=== PATIENT | male | born 1950 | race Caucasian/White ===

== ENCOUNTER 2018-03-14 20:58 | Inpatient (IN) ==
[2018-03-14] MEDS ORDERED: DUONEB (A & A) ONE (21:29)
[2018-03-14] MEDS ORDERED: DUONEB (A & A) INH ONE ×2 (21:30→23:26)
[2018-03-14 21:39] LABS: BASO# 0.02 X1000 (0.0-0.2); BASO% 0.2 % (0.0-0.8); EOS# 0.92 X1000 (0.0-0.7); EOS% 10.5 % (0.0-10.0); HEMATOCRIT 36.6 % (42.0-52.0); HEMOGLOBIN 11.7 g/dL (14.0-18.0); IMM GRAN# 0.02 X1000 (0.0-0.04); IMM GRAN% 0.2 % (0.0-0.5); LYMPH# 2.02 X1000 (1.2-3.4); MCH 26.2 PG (27-31); MCV 81.9 FL (81-99); MONO# 0.78 X1000 (0.11-0.59); MONO% 8.9 % (1.7-9.3); MPV 8.6 FL (7.4-10.4); NEUT# 5.02 X1000 (1.4-6.5); NEUT% 57.2 % (42.2-75.2); PLT 342 X1000 (130-400); RBC 4.47 XMIL (4.7-6.1); WBC 8.78 X1000 (4.8-10.8)
[2018-03-14 21:58] LABS: AGAP 12; ALBUMIN 3.4 g/dL (3.5-5.0); ALKALINE PHOSPHATASE 126 U/L (32-122); BUN 14 mg/dL (8-22); CALCIUM 9.2 mg/dL (8.8-10.2); CHLORIDE 93 mmol/L (98-107); COSMO 277; CREATININE 1.1 mg/dL (0.7-1.2); ESTIMATED GFR > 60; GLUCOSE 109 mg/dL (70-104); GOT 9 U/L (10-34); GPT 6 U/L (10-44); POTASSIUM 4.5 mmol/L (3.5-5.1); SODIUM 138 mmol/L (136-145); TCO2 33 mmol/L (25-35); TOTAL PROTEIN 7.1 g/dL (6.3-8.3)
[2018-03-14 22:02] LABS: BE 10.7 mmoll (-3.0-3.0); BLOOD TYPE ARTERIAL; HCO3-(ACT) 33.1 mmoll (20.0-26.0); O2(CT) 15.1 mL/dL (15.0-23.0); O2HB 91.3 % (95.0-99.0); PO2(98.6) 65 mmHg (60-100); SAMPLE BLOOD; SAO2 95.6 % (95.0-100.0); THB 11.7 g/dL (11.5-17.4); pH(98.6) 7.41 (7.35-7.45)
[2018-03-14 22:04] LABS: ALLEN TEST YES; MODALITY CANNULA; PCO2(98.6) 59 mmHg (35-45)
[2018-03-14] MEDS ORDERED: LEVAQUIN 750 MG/D5W 750 MG/150 ML IVPB IV ONE (23:27)
[2018-03-14] MEDS ORDERED: SOLU-MEDROL IV ONE (23:57)
--- NOTE | 2018-03-15 00:12 | PROVIDER DOCUMENTATION ---
This chart was entered by Екатерина Osborne Scribe, acting as scribe for Cas Maldonado MD. HPI-Respiratory General - General Chief Complaint: Shortness of Breath Stated Complaint: AMS Time Seen by Provider: 03/14/18 21:36 Source: patient Allergies/Adverse Reactions: Patient Allergies Allergy/AdvReac Type Severity Reaction Status Date / Time dantrolene sodium * Allergy ITCHING Verified 12/26/17 21:26 [From Dantrium] piroxicam [From Feldene] Allergy ITCHING Verified 12/26/17 21:26 Home Medications: Home Medication List Medication Instructions Recorded Confirmed Last Taken Type Sertraline [Zoloft] 1 tab PO DAILY 05/02/17 01/25/18 Unknown History Furosemide [Lasix] 40 mg PO BID 12/26/17 01/25/18 Unknown History Diltiazem C.d. [Cardizem Cd] 120 mg PO DAILY #90 cap 12/30/17 01/25/18 Unknown Rx Olanzapine 1 tab PO HS 01/05/18 01/25/18 Unknown History Albuterol 2.5MG/Ipratrop 0.5MG 3 ml INH RTQ4H neb 01/09/18 01/25/18 Unknown Rx [Duoneb (A & A)] Alprazolam [Xanax] 0.5 mg PO BID PRN PRN tablet 01/09/18 01/25/18 Unknown Rx Spironolactone 1 tab PO BID 01/25/18 01/25/18 Unknown History Albuterol 2.5MG/Ipratrop 0.5MG 3 ml INH RTQ4H neb 01/27/18 Unknown Rx [Duoneb (A & A)] Hydrocodone/APAP 10 mg/325 mg 1 each PO Q6H PRN PRN tablet 01/27/18 Unknown Rx [[place]-10] Levofloxacin [Levaquin] 500 mg PO DAILY #5 tab 01/27/18 Unknown Rx Methylprednisolone [Medrol Dosepak] 4 mg PO DIRECTED #1 pkg 01/27/18 Unknown Rx - History of Present Illness-Resp Nature of Presenting Problem: Patient is a 67 year old male who presents to the ED via EMS with shortness of breath. Patient's O2 sat was 83% on 3 L on arrival to ED. Patient denies chest pain. Patient's O2 sat is currently 90% on 3 L after having a breathing treatment. Quality of Pain: reports: tightness Severity in ED: reports: moderate Onset/Duration: reports: this morning Timing: reports: still present Cough Quality/Degree: reports: no cough Current Respiratory Medication Therapy: Initiated see nurses note Modifying Factors: improves with: nothing Associated Symptoms: reports: shortness of breath Similar Symptoms Previously?: No Recently seen or treated by another doctor?: No Review of Systems - Adult - REVIEW OF SYSTEMS - ADULT Constitutional: reports: no symptoms reported Eyes: reports: no symptoms reported Ears, Nose, Mouth & Throat: reports: no symptoms reported Cardiovascular: reports: no symptoms reported Respiratory: reports: shortness of breath. denies: cough, wheezing Gastrointestinal: reports: no symptoms reported Genitourinary: reports: no symptoms reported Musculoskeletal: reports: no symptoms reported Integumentary: reports: no symptoms reported Neurological: reports: no symptoms reported Psychiatric: reports: no symptoms reported Endocrine: reports: no symptoms reported Hematologic/Lymphatic: reports: no symptoms reported Allergic/Immunologic: reports: no symptoms reported All Other Systems: Reviewed and Negative Past History - Adult - PAST MEDICAL HISTORY-ADULT Review of Records: reports: Nursing Assessment Review, Medications Reviewed, Social history reviewed & non-contributory. Major Childhood Illnesses: reports: denies history Cardiovascular: reports: CAD, CHF, HTN, [place] Respiratory: reports: COPD, sleep apnea Gastrointestinal: reports: GERD Obstetrical/Gynecological: reports: denies history Genitourinary: reports: denies history Musculoskeletal: reports: chronic pain, neck/back injury Neurological: reports: dementia Psychiatric: reports: psychiatric problems Endocrine/Immune: reports: denies history Other Conditions: reports: other (agent orange) Additional History: prescription medication abuse - PRIOR SURGERIES/PROCEDURES Surgical/Procedure History: reports: appendectomy, hernia repair, back/neck - PRIOR HOSPITALIZATIONS Prior Hospitalizations: reports: none - IMMUNIZATION STATUS Childhood Immunizations: See Nurse Assessment Flu Vaccine: See Nurse Assessment - FAMILY HISTORY Family History: reviewed, not pertinent - SOCIAL HISTORY Smoking: secondhand, cigarettes (former) Substance Use: denies Living Situation: family Physical Exam-General - PHYSICAL EXAM-ADULT Initial Vital Signs Reviewed: Yes - CONSTITUTIONAL General Appearance: alert, no apparent distress - HEAD, EARS, NOSE, MOUTH & THROAT HENMT: normal ENT inspection - NECK Neck: normal inspection - RESPIRATORY Respiratory: chest non-tender, decreased breath sounds (bilateral), rales ( bilateral) - CARDIOVASCULAR Cardiovascular: normal peripheral pulses, regular rate, rhythm - GASTROINTESTINAL (ABDOMEN) Abdominal Exam: normal bowel sounds, non tender, soft - MUSCULOSKELETAL Extremity: non-tender, swelling (bilateral ankles) - SKIN Integumentary: normal color, normal turgor, warm/dry - NEUROLOGIC Neurologic: grossly normal - PSYCHIATRIC Psych/Mental Status: normal mood/affect, oriented x 3 Progress - PLAN OF CARE/RESULTS Progress/Plan/Lab Results: Vital Signs - 8 hr 03/14/18 20:59 03/14/18 21:35 03/14/18 22:04 Temperature 98.4 F Pulse Rate 99 H 95 H 98 H Respiratory Rate 16 17 13 Blood Pressure 149/95 136/89 144/92 O2 Sat by Pulse Oximetry 92 L 93 L 90 L 03/14/18 22:57 03/14/18 23:40 Temperature Pulse Rate 92 H 90 Respiratory Rate 15 18 Blood Pressure 157/89 O2 Sat by Pulse Oximetry 93 L 94 L Laboratory Results - last 24 hr 03/14/18 03/14/18 03/14/18 21:14 21:14 21:14 WBC 8.78 RBC 4.47 L Hgb 11.7 L Hct 36.6 L MCV 81.9 MCH 26.2 L MCHC 32.0 L RDW Std Deviation 17.0 H Plt Count 342 MPV 8.6 Immature Gran % (Auto) 0.2 Neut % (Auto) 57.2 Lymph % (Auto) 23.0 [place] % (Auto) 8.9 Eos % (Auto) 10.5 H Baso % (Auto) 0.2 Immature Gran # (Auto) 0.02 Neut # (Auto) 5.02 Lymph # (Auto) 2.02 [place] # (Auto) 0.78 H Eos # (Auto) 0.92 H Baso # (Auto) 0.02 Specimen Type Sample Site pH pCO2 pO2 HCO3 Base Excess Oxyhemoglobin ABG O2 Sat (Calculated) ABG O2 Saturation ABG Carboxyhemoglobin ABG Methemoglobin [place] Test A-a O2 Difference Total Hemoglobin Lactate Liter Flow Blood Gas Modality FiO2 % Sodium 138 Potassium 4.5 Chloride 93 L Carbon Dioxide 33 Anion Gap 12 BUN 14 Creatinine 1.1 Estimated GFR/1.73 m2 > 60 BUN/Creatinine Ratio 13 Glucose 109 H Calculated Osmolality 277 Calcium 9.2 Total Bilirubin 0.20 AST 9 L ALT 6 L Alkaline Phosphatase 126 H Troponin T Syt-P-Fclvhhsxpzi Pept Total Protein 7.1 Albumin 3.4 L Globulin 4.0 Albumin/Globulin Ratio 1.0 Plasma Lactate 1.1 03/14/18 03/14/18 03/14/18 21:14 21:14 21:36 WBC RBC Hgb Hct MCV MCH MCHC RDW Std Deviation Plt Count MPV Immature Gran % (Auto) Neut % (Auto) Lymph % (Auto) [place] % (Auto) Eos % (Auto) Baso % (Auto) Immature Gran # (Auto) Neut # (Auto) Lymph # (Auto) [place] # (Auto) Eos # (Auto) Baso # (Auto) Specimen Type ARTERIAL Sample Site L BRACHIAL pH 7.41 pCO2 59 H* pO2 65 HCO3 33.1 H Base Excess 10.7 H Oxyhemoglobin 91.3 L ABG O2 Sat (Calculated) 15.1 ABG O2 Saturation 95.6 ABG Carboxyhemoglobin 3.50 H ABG Methemoglobin 1.0 [place] Test YES A-a O2 Difference 89.0 Total Hemoglobin 11.7 Lactate 0.60 Liter Flow 3.0 Blood Gas Modality [place] FiO2 % 32.0 Sodium Potassium Chloride Carbon Dioxide Anion Gap BUN Creatinine Estimated GFR/1.73 m2 BUN/Creatinine Ratio Glucose Calculated Osmolality Calcium Total Bilirubin AST ALT Alkaline Phosphatase Troponin T < 0.010 Prz-U-Fiotnlvlegx Pept 343 H Total Protein Albumin Globulin Albumin/Globulin Ratio Plasma Lactate Orders Category Date Time Status CHEST-PORTABLE [RAD] Stat Exams 03/14/18 21:53 Taken ABG [RESP] Routine Lab 03/14/18 21:36 Completed BLOOD CULTURE [BLDCUL] Stat Lab 03/14/18 21:22 Results CBC WITH ELECTRONIC DIFF [HEME] Stat Lab 03/14/18 21:14 Completed COMPREHENSIVE METABOLIC PANEL [CHEM] Stat Lab 03/14/18 21:14 Completed LACTATE, PLASMA [CHEM] Stat Lab 03/14/18 21:14 Completed PRO B-NATRIURETIC PEPTIDE Stat Lab 03/14/18 21:14 Completed TROPONIN T Stat Lab 03/14/18 21:14 Completed Albuterol 2.5MG/Ipratrop 0.5MG [Duoneb (A & A)] Med 03/14/18 21:29 Discontinued 3 ml .ROUTE .STK-MED ONE Albuterol 2.5MG/Ipratrop 0.5MG [Duoneb (A & A)] Med 03/14/18 21:30 Discontinued 3 ml INH NOW ONE Albuterol 2.5MG/Ipratrop 0.5MG [Duoneb (A & A)] Med 03/14/18 23:26 Discontinued 3 ml INH NOW ONE Levofloxacin 750 mg/D5w [Levaquin 750 mg/D5w] Med 03/14/18 23:27 Active 750 mg in 150 ml IV NOW Aerosol Treatments Routine Oth 03/14/18 21:30 Completed Aerosol Treatments Routine Oth 03/14/18 23:27 Completed Aerosol Treatments Stat Oth 03/14/18 21:30 Completed Aerosol Treatments Stat Oth 03/14/18 23:27 Completed EKG [EKG] Stat Ther 03/14/18 21:23 Ordered Result Diagrams: 03/14/18 21:14 03/14/18 21:14 - REASSESSMENT Reassessment #1 Time Reassessed: 23:45 Status: improving (FEELS MUCH BETTER, LESS DYSPNEIC AFTER TREATMENTS) - EKG 1 Time of EKG reading by physician:: 21:32 EKG Read and Signed by:: Cas Maldonado EKG Interpretation (*Must complete 3 of following elements*): Abnormal Rate: 99 Rhythm: normal sinus rhythm Comments: prolonged QT - XRAY 1 XRAY Study: Chest Impression: Abnormal (COPD WITH NEW INFILTRATESRIGHT MID FIELD) - CONSULTS/PCP/HOSPITALIST Notification #1 *Consult/PCP/Hospitalist*: Dr. Gipson Time Discussed: 23:41 Reason/Comments: Dr. Maldonado consulted with Dr. Gipson about patient. Consult Disposition: other (Dr. Gipson states Dr. Carlson admits his own.) #2 Consult: Dr. Carlson Time Discussed: 23:46 Reason/Comments: Dr. Maldonado consulted with Dr. Carlson about patient. Consult Disposition: Admit Departure - Departure Date of Disposition Decision: 03/14/18 Time of Disposition Decision: 23:47 DIAGNOSIS: COPD with exacerbation, Respiratory distress, Carbon dioxide retention, Pneumonia Disposition: ADMITTED INPATIENT 09 Certified Medical Emergency: Emergent Condition: Stable Referrals and Follow-Ups: Migeul Carlson MD [Primary Care Provider] - - Critical Care Note This patient required my direct & personal management of CC.: No Attestation - Physician/ DEVON Attestation Patient care was provided by Advanced Practice Provider:: No The physician spent face to face time with patient:: Yes Advanced Practice Provider documentation review:: Supervising physician onsite and consulted in the evaluation and care of this patient. The physician did have a face to face encounter with the patient. This chart was documented by the indicated scribe, (Екатерина Osborne Scribe) and accurately reflects the services I performed and decisions made by me, Cas Maldonado MD, as attested by the provider's signature.
--- NOTE | 2018-03-15 02:07 | EKG Report ---
Test Performed on : 03/14/2018 9:32:49 PM Test Reason : sob Blood Pressure : / mmHG Vent. Rate : 099 BPM Atrial Rate : 099 BPM P-R Int : 184 ms QRS Dur : 096 ms QT Int : 380 ms P-R-T Axes : 069 019 067 degrees QTc Int : 487 ms Normal sinus rhythm. Prolonged QT Abnormal ECG When compared with ECG of 23-JAN-2018 15:55, (Unconfirmed) QT has lengthened Unconfirmed Result
[2018-03-15] MEDS: DUONEB (A & A) INH SCH ×7 (03:33→23:00)
[2018-03-15] MEDS ORDERED: NS 1,000 ML IV ONE (03:33)
[2018-03-15] MEDS ORDERED: ATIVAN IV ONE (04:32)
[2018-03-15] MEDS ORDERED: GEODON IM ONE (05:33)
[2018-03-15] MEDS ORDERED: STERILE WATER INJ. INJ ONE (05:33)
--- NOTE | 2018-03-15 07:28 | Diag Imaging Result Doc PS360 ---
EXAM: CHEST-PORTABLE HISTORY: SOB TECHNIQUE: Chest single view COMPARISON: 01/23/2018 FINDINGS: The lungs are well expanded. The heart is not enlarged. There are infiltrates in the mid right lung. Likely scarring in the lower left lung. No pleural effusions identified. Hilar prominence which may be the vasculature. There is a calcified granuloma in the right base. IMPRESSION: Right-sided infiltrates Electronically signed by Pietro Melo 03/15/2018 7:25 AM
[2018-03-15] MEDS ORDERED: NS 1,000 ML ONE (07:46)
[2018-03-15] MEDS ORDERED: TYLENOL PO PRN (08:30)
[2018-03-15] MEDS ORDERED: DUONEB (A & A) INH PRN (08:30)
[2018-03-15] MEDS ORDERED: ZOFRAN IV PRN (08:30)
[2018-03-15] MEDS ORDERED: VANCOMYCIN IV PER PHARMACY MISC SCH (08:45)
[2018-03-15] MEDS: SOLU-MEDROL IV SCH ×2 (09:10→17:40)
[2018-03-15] MEDS: ZOLOFT PO SCH (09:10)
[2018-03-15] MEDS: ZOSYN 3.375 GM in NS 50 ML IV SCH ×3 (09:35→20:39)
[2018-03-15] MEDS: VANCOMYCIN 2,000 MG in NS 500 ML IV SCH (10:00)
[2018-03-15] MEDS ORDERED: XANAX ONE (10:17)
[2018-03-15] MEDS: XANAX PO PRN ×2 (10:18→20:34)
[2018-03-15] MEDS ORDERED: DUONEB (A & A) INH SCH (11:30)
[2018-03-15] MEDS ORDERED: NORCO-10 ONE (11:55)
[2018-03-15] MEDS: NORCO-10 PO PRN ×2 (12:09→18:33)
[2018-03-15] MEDS ORDERED: CARDIZEM CD ONE (13:46)
[2018-03-15] MEDS: CARDIZEM CD PO SCH (13:54)
[2018-03-15] MEDS: ZYPREXA PO SCH (20:34)
[2018-03-16] MEDS: NORCO-10 PO PRN ×4 (00:40→21:23)
[2018-03-16] MEDS: SOLU-MEDROL IV SCH ×3 (04:03→18:20)
[2018-03-16] MEDS: ZOSYN 3.375 GM in NS 50 ML IV SCH ×4 (04:04→23:50)
[2018-03-16] MEDS: DUONEB (A & A) INH SCH ×6 (04:15→22:47)
[2018-03-16] MEDS: VANCOMYCIN 1 GM/NS 1 GM/250 ML IVPB IV SCH ×2 (04:28→04:33)
[2018-03-16] MEDS: VANCOMYCIN 2,000 MG in NS 500 ML IV SCH ×2 (04:33→21:21)
[2018-03-16] MEDS: ZOLOFT PO SCH (08:07)
[2018-03-16] MEDS: CARDIZEM CD PO SCH (08:07)
--- NOTE | 2018-03-16 08:34 | HISTORY AND PHYSICAL ---
CHIEF COMPLAINT: Confusion, shortness of breath. HISTORY OF PRESENT ILLNESS: The patient is a 67-year-old male, who presented to the emergency department with increased work of breathing, increased shortness of breath, dyspnea on exertion. His O2 saturation was 83% on 3 L. He improved to 90% on 3 L after nebulized treatment. He was confused, restless, repeatedly pulling out his IV. ALLERGIES: Dantrolene and Feldene both causing itching. MEDICATIONS: Zoloft, Lasix 40 twice a day, Cardizem 120, Zyprexa, albuterol, Xanax 0.5 b.i.d., spironolactone 25 daily, [place] 10 three times daily. PAST MEDICAL HISTORY: Chronic pain, chronic anxiety, PTSD, COPD, chronic hypoxic respiratory failure, chronic hypercapnic respiratory failure currently on Trilogy at home. He has history of congestive heart failure, hypertension, [place], chronic reflux. He has had a neck and back injury in the past. Chronic pain. He has been exposed to [place]. He has had an appendectomy and a hernia repair. SOCIAL HISTORY: Lives at home. He is . He has stopped smoking. Denies alcohol. FAMILY HISTORY: Noncontributory, although does have family history of anxiety. REVIEW OF SYSTEMS: Unobtainable currently from Mr. Gonzales due to his altered mental status. PHYSICAL EXAMINATION: VITAL SIGNS: Temperature 94 degrees, pulse 99, respiratory 16, BP 149/95, saturating currently 92% on 3 L. GENERAL: Patient is awake, alert, but confused, disoriented. He does know where he is and why, but he is unable to answer other questions, and frequently starts talking about totally unrelated items when asked questions. HEENT: Normocephalic. NECK: Supple. CV: Regular rate. No murmurs. CHEST: Greatly decreased breath sounds bilaterally. Moderately labored. Moderate wheezing. ABDOMEN: Soft, nondistended. EXTREMITIES: He has no edema. Moves all extremities. NEUROLOGIC: He is awake, alert, but disoriented. No apparent focal neurologic changes otherwise. LABS: WBC 8. ASSESSMENT: 1. Chronic obstructive pulmonary disease with exacerbation. 2. Acute on chronic hypoxic respiratory failure. 3. Chronic hypercapnic respiratory failure. CO2 is at his baseline. 4. Hypertension. 5. Diabetes. 6. Chronic coronary artery disease. 7. Others. PLAN: We will admit patient to hospital. IV fluids, antibiotics, breathing treatments, oxygen and will follow with you. cc: Miguel Carlson MD
[2018-03-16] MEDS ORDERED: SODIUM CHLORIDE 0.9% INJ SCH (14:15)
[2018-03-16] MEDS: PROTONIX IV SCH (16:04)
[2018-03-16] MEDS: ZYPREXA PO SCH (21:21)
[2018-03-16] MEDS: XANAX PO PRN (21:23)
[2018-03-17] MEDS: DUONEB (A & A) INH SCH ×6 (02:58→23:05)
[2018-03-17] MEDS: NORCO-10 PO PRN ×2 (05:09→15:57)
[2018-03-17] MEDS: ZOSYN 3.375 GM in NS 50 ML IV SCH ×3 (05:10→18:26)
[2018-03-17] MEDS: XANAX PO PRN ×2 (05:10→15:57)
[2018-03-17] MEDS: SOLU-MEDROL IV SCH ×3 (05:11→19:56)
[2018-03-17] MEDS: CARDIZEM CD PO SCH (08:20)
[2018-03-17] MEDS: ZOLOFT PO SCH (08:20)
--- NOTE | 2018-03-17 10:05 | PROGRESS NOTE ---
DATE: 03/16/2018 SUBJECTIVE: Patient seen and examined by myself on the third. Patient states he is feeling better. Still has some shortness of breath, still anxious, nervous, still hurting all over. Denies any chest pains currently. OBJECTIVE: Vital Signs: On physical examination, pulse 104, respiratory 22, BP 169/88. General: Patient is awake, alert. He is much more oriented today than he was on last night's exam. HEENT: Normocephalic, atraumatic. Neck: Supple. CV: Regular rate. No murmurs. Chest: Clear, but decreased. Currently no wheezing, but he has just had a breathing treatment. Abdomen: Soft, nondistended. Extremities: Moves all extremities. He has trace edema. ASSESSMENT: 1. Acute on chronic hypoxic respiratory failure. 2. Chronic hypercapnic respiratory failure on Trilogy at home. 3. Metabolic encephalopathy secondary to hypoxic respiratory failure. 4. Chronic anxiety. 5. Chronic pain. PLAN: Will continue patient in the hospital. Continue Trilogy, oxygen, antibiotics, breathing treatments and will follow. We will continue to discuss with patient that he cannot increase his pain medicine or his anxiety medicine due to respiratory failure. cc: Miguel Carlson MD
[2018-03-17] MEDS: PROTONIX IV SCH (16:00)
[2018-03-17] MEDS: VANCOMYCIN 2,000 MG in NS 500 ML IV SCH (16:07)
[2018-03-17] MEDS: ZYPREXA PO SCH ×2 (19:56→20:05)
--- NOTE | 2018-03-17 22:07 | PROGRESS NOTE ---
DATE: 03/17/2018 SUBJECTIVE: Patient is a little bit more awake and alert this morning he is more oriented. States his breathing is improving, still having cough, congestion, still has shortness of breath. OBJECTIVE: Vital Signs: Reviewed, he is afebrile, blood pressure stable, heart rate 22. General: Patient is lying in the bed he has just received a breathing treatment. He is in stable chronic mild respiratory distress currently. HEENT: Normocephalic. Neck: Supple. CV: Regular rate. Chest: Clear, no current crackles, no wheezing, decreased but equal breath sounds bilaterally. Abdomen: Soft nondistended. Extremities: Moves all extremities. Neuro: No focal changes. ASSESSMENT: 1. Acute hypoxic on chronic hypoxic respiratory failure. 2. Chronic hypercapnic respiratory failure. 3. Chronic obstructive pulmonary disease with exacerbation . 4. Chronic medical noncompliance. 5. Chronic anxiety. 6. Chronic pain. PLAN: Will continue patient in the hospital. At this point he is stable to transfer out of the ICU. Will continue his current treatment and further orders as needed. cc: Miguel Carlson MD
[2018-03-18] MEDS: ZOSYN 3.375 GM in NS 50 ML IV SCH ×5 (00:33→23:16)
[2018-03-18] MEDS: DUONEB (A & A) INH SCH ×6 (03:34→23:04)
[2018-03-18] MEDS: SOLU-MEDROL IV SCH ×3 (05:01→21:22)
[2018-03-18 05:48] LABS: BE 4.6 mmoll (-3.0-3.0); BLOOD TYPE ARTERIAL; HCO3-(ACT) 28.5 mmoll (20.0-26.0); METHB 1.2 % (0.0-1.5); O2(CT) 16.1 mL/dL (15.0-23.0); PO2(98.6) 92 mmHg (60-100); SAMPLE BLOOD; SAO2 98.5 % (95.0-100.0); pH(98.6) 7.38 (7.35-7.45)
[2018-03-18 05:51] LABS: ALLEN TEST YES; MODALITY CANNULA; PCO2(98.6) 52 mmHg (35-45)
[2018-03-18 06:58] LABS: HEMATOCRIT 37.4 % (42.0-52.0); HEMOGLOBIN 11.6 g/dL (14.0-18.0); IMM GRAN# 0.02 X1000 (0.0-0.04); IMM GRAN% 0.3 % (0.0-0.5); LYMPH# 0.83 X1000 (1.2-3.4); MCH 25.3 PG (27-31); MCV 81.5 FL (81-99); MONO# 0.55 X1000 (0.11-0.59); MONO% 7.3 % (1.7-9.3); NEUT# 6.16 X1000 (1.4-6.5); NEUT% 81.4 % (42.2-75.2); PLT 390 X1000 (130-400); RBC 4.59 XMIL (4.7-6.1); RDW 17.7 % (11.5-14.5); WBC 7.56 X1000 (4.8-10.8)
[2018-03-18 07:19] LABS: AGAP 9; ALKALINE PHOSPHATASE 84 U/L (32-122); BUN 33 mg/dL (8-22); CHLORIDE 103 mmol/L (98-107); COSMO 288; CREATININE 0.9 mg/dL (0.7-1.2); ESTIMATED GFR > 60; GLUCOSE 114 mg/dL (70-104); GOT 8 U/L (10-34); GPT 7 U/L (10-44); POTASSIUM 3.8 mmol/L (3.5-5.1); SODIUM 140 mmol/L (136-145); TCO2 28 mmol/L (25-35); TOTAL PROTEIN 6.3 g/dL (6.3-8.3)
[2018-03-18] MEDS ORDERED: LIORESAL PO PRN (07:47)
[2018-03-18] MEDS ORDERED: CARDIZEM CD PO SCH (09:00)
[2018-03-18] MEDS ORDERED: FLU VACCINE IM ONE (09:00)
[2018-03-18] MEDS: ZOLOFT PO SCH (09:04)
[2018-03-18] MEDS: CARDIZEM CD PO SCH (09:05)
[2018-03-18] MEDS: LASIX PO SCH ×2 (09:24→21:23)
[2018-03-18] MEDS: DOXYCYCLINE PO SCH ×2 (09:24→21:23)
[2018-03-18] MEDS: ALDACTONE PO SCH ×2 (09:24→21:23)
[2018-03-18] MEDS: XANAX PO PRN ×2 (12:33→21:22)
[2018-03-18] MEDS: NORCO-10 PO PRN ×2 (12:33→18:30)
--- NOTE | 2018-03-18 19:37 | PROGRESS NOTE ---
DATE: 03/18/2018 SUBJECTIVE: Patient notes he is starting feel a lot better. States he does not know what transpired cause him come the hospital be so confused, disoriented. PHYSICAL: Temperature 98.5, pulse 87, respiratory 20, BP 163/97.General: Patient is awake, alert currently in mild respiratory distress this is baseline. HEENT: Normocephalic. Neck: Supple. CV: Regular rate, no murmurs. Chest: Clear, currently he has no crackles, no wheezing but decreased breath sounds bilaterally. Abdomen: Soft nondistended. Extremities: Moves all extremities. ASSESSMENT: 1. Chronic obstructive pulmonary disease with acute exacerbation. 2. Acute on chronic hypoxic respiratory failure. 3. Chronic hypercapnic respiratory failure his CO2 was at baseline on admission. 4. Hypertension. 5. Diabetes. 6. Known coronary artery disease. 7. Chronic pain. 8. Chronic anxiety. PLAN: Will continue patient the hospital, decrease Solu-Medrol to 40 IV q.8, if he tolerates hopefully can discharge home tomorrow. cc: Miguel Carlson MD
[2018-03-18] MEDS ORDERED: PROTONIX PO SCH (21:00)
[2018-03-18] MEDS: ZYPREXA PO SCH (21:23)
[2018-03-19] MEDS: NORCO-10 PO PRN ×2 (01:57→08:38)
[2018-03-19] MEDS: DUONEB (A & A) INH SCH ×2 (03:45→08:16)
[2018-03-19] MEDS: ZOSYN 3.375 GM in NS 50 ML IV SCH ×2 (04:48→12:38)
[2018-03-19] MEDS: SOLU-MEDROL IV SCH (04:48)
[2018-03-19] MEDS: CARDIZEM CD PO SCH (08:38)
[2018-03-19] MEDS: ZOLOFT PO SCH (08:38)
[2018-03-19] MEDS: LASIX PO SCH (08:39)
[2018-03-19] MEDS: ALDACTONE PO SCH (08:39)
[2018-03-19] MEDS: DOXYCYCLINE PO SCH (08:39)
[2018-03-19] MEDS: XANAX PO PRN (08:39)
[2018-03-19 11:28] VITALS: BP 137/83
--- NOTE | 2018-03-19 14:58 | DISCHARGE SUMMARY ---
ADMISSION DATE: 03/15/2018 DISCHARGE DATE: 03/19/2018 DISCHARGE DIAGNOSES: 1. Chronic obstructive pulmonary disease exacerbation. 2. Metabolic encephalopathy. 3. Acute on chronic hypoxemia. 4. Acute on chronic respiratory failure. 5. Chronic pain. 6. Chronic anxiety. CONSULTATIONS: None. PROCEDURES: None. BRIEF HOSPITAL COURSE: Patient is a 67-year-old male who presented to the emergency department acutely confused, disoriented and delirious. He was noted to be quite hypoxic. His CO2 or ABG actually was lower than when he was in the hospital the last admission. He had been using Trilogy at home. The patient was admitted to ICU, placed on breathing treatments, oxygen, antibiotics, steroids, and placed back on his Trilogy. Thankfully, continued to improve over the next few days. His oxygenation returned back to his baseline. He was in no further distress. The patient's steroids were weaned. On discharge, he is awake, alert. He is back to his baseline. He is in no distress. He is alert oriented x 3. He is tolerating home Trilogy, tolerating oxygen. DISPOSITION: Patient will be discharged home. TIME SPENT: Greater than 30 minutes was spent in total care. Discussed with patient that most likely the cause of his acute delirium was medications side effect. We have been struggling to try to force him to stop Xanax and hydrocodone. We will continue to force him to wean these substances down. He will be discharged home on antibiotics, a steroid tapering Dosepak. Will continue Trilogy and oxygen at home. cc: Miguel Carlson MD
== END 2018-03-19 13:20 | disposition home or self-care (01) | DRG 189 ==
LOC: P.EDIPHOLD 20:58 → P.ED 20:58 → SUATTDRO 03-15 03:10 → P.MEDSURG 03-15 09:31 → P.EDIPHOLD 03-15 10:12 → P.ICU 03-15 19:07 → P.MEDSURG 03-17 12:20
PROVIDERS: ADMIT Family Medicine; ATTEND Family Medicine
CPT/HCPCS: 71010; 71045; 80053; 82805; 82948; 83605; 83880; 84484; 85025; 87040; 90686; 93005; 94640; 94761; 96361; 96365; 96366; 96367; 96368; 96372; 96375; 96376; 99285; A9270; C9113; J1956; J2060; J2543; J2920; J2930; J3370; J3486; J7030; J7040; S0164; XXXXX

== ENCOUNTER 2018-06-07 16:45 | Inpatient (IN) ==
[2018-06-07] MEDS ORDERED: DUONEB (A & A) INH ONE (17:05)
[2018-06-07] MEDS ORDERED: SOLU-MEDROL IV ONE (17:05)
[2018-06-07] MEDS ORDERED: PULMICORT INH ONE (17:05)
--- NOTE | 2018-06-07 17:16 | PROVIDER DOCUMENTATION ---
HPI-Respiratory General - General Chief Complaint: Shortness of Breath Stated Complaint: SOB Time Seen by Provider: 06/07/18 16:54 Source: patient Allergies/Adverse Reactions: Patient Allergies Allergy/AdvReac Type Severity Reaction Status Date / Time dantrolene sodium * Allergy ITCHING Verified 06/07/18 17:04 [From Dantrium] piroxicam [From Feldene] Allergy ITCHING Verified 06/07/18 17:04 Home Medications: Home Medication List Medication Instructions Recorded Confirmed Last Taken Type Sertraline [Zoloft] 50 mg PO DAILY 05/02/17 03/17/18 Unknown History Furosemide [Lasix] 40 mg PO BID 12/26/17 03/17/18 Unknown History Spironolactone 25 mg PO BID 01/25/18 03/17/18 Unknown History Hydrocodone/APAP 10 mg/325 mg 1 each PO Q6H PRN PRN tablet 01/27/18 03/17/18 Unknown Rx [[place]-10] Albuterol 2.5MG/Ipratrop 0.5MG 3 ml INH RTQ4H PRN 03/17/18 03/17/18 Unknown History [Duoneb (A & A)] Alprazolam 0.5 mg PO TID PRN 03/17/18 03/17/18 Unknown History Amphetamine Salts [Adderall] 20 mg PO BID 03/17/18 03/17/18 Unknown History Baclofen 10 mg PO BID PRN 03/17/18 03/17/18 Unknown History Diltiazem HCl [Cartia Xt] 120 mg PO DAILY 03/17/18 03/17/18 Unknown History Albuterol 2.5MG/Ipratrop 0.5MG 3 ml INH Q4-6H PRN PRN neb 03/19/18 Unknown Rx [Duoneb (A & A)] CefDINIR [Omnicef] 300 mg PO BID #10 cap 03/19/18 Unknown Rx Doxycycline 100 mg PO BID #10 tab 03/19/18 Unknown Rx Methylprednisolone [Medrol Dosepak] 4 mg PO DIRECTED #1 pkg 03/19/18 Unknown Rx - History of Present Illness-Resp Nature of Presenting Problem: Presents to the with complaints of SOB and dyspnea. He states that he is on hospice for COPD and CHF. he is normally on NC at 3L and his normal SpO2 is 89- 90%. His SpO2 with hospice was 81%. They wanted him to sign a DNR and he got sca red and revoked his hospiace and stated that he wanted to live. They gave him a breathing treatment at [facility] and EMS gave him one as well. He endorses a chronic unchanged cough. He deneis any fevers or chills. Review of Systems - Adult - REVIEW OF SYSTEMS - ADULT Constitutional: denies: chills, fever Eyes: reports: no symptoms reported Ears, Nose, Mouth & Throat: reports: no symptoms reported Cardiovascular: denies: chest pain Respiratory: reports: chronic cough, cough, dyspnea on exertion Gastrointestinal: reports: no symptoms reported Genitourinary: reports: no symptoms reported Musculoskeletal: reports: no symptoms reported Integumentary: reports: no symptoms reported Neurological: reports: no symptoms reported Psychiatric: reports: no symptoms reported Endocrine: reports: no symptoms reported Hematologic/Lymphatic: reports: no symptoms reported Allergic/Immunologic: reports: no symptoms reported All Other Systems: Reviewed and Negative Past History - Adult - PAST MEDICAL HISTORY-ADULT Review of Records: reports: Old Records Reviewed Major Childhood Illnesses: reports: denies history Cardiovascular: reports: CAD, CHF, HTN, MS Respiratory: reports: COPD, sleep apnea Gastrointestinal: reports: GERD Obstetrical/Gynecological: reports: denies history Genitourinary: reports: denies history Musculoskeletal: reports: chronic pain, neck/back injury Neurological: reports: dementia Psychiatric: reports: psychiatric problems Endocrine/Immune: reports: denies history Other Conditions: reports: other ([place]) Additional History: prescription medication abuse - PRIOR SURGERIES/PROCEDURES Surgical/Procedure History: reports: appendectomy, hernia repair, back/neck - PRIOR HOSPITALIZATIONS Prior Hospitalizations: reports: none - IMMUNIZATION STATUS Childhood Immunizations: See Nurse Assessment Flu Vaccine: See Nurse Assessment - FAMILY HISTORY Family History: reviewed, not pertinent Physical Exam-General - PHYSICAL EXAM-ADULT Initial Vital Signs Reviewed: Yes - CONSTITUTIONAL General Appearance: alert, mild distress, anxious - EYES Eyes: PERRL/EOMI - HEAD, EARS, NOSE, MOUTH & THROAT HENMT: normocephalic/atraumatic - NECK Neck: non-tender, supple - RESPIRATORY Respiratory: chest non-tender, respiratory distress (mild), decreased breath sounds (severe throughout), accessory muscle use (mild). negative: crackles - CARDIOVASCULAR Cardiovascular: normal peripheral pulses, tachycardia - GASTROINTESTINAL (ABDOMEN) Abdominal Exam: normal bowel sounds, non tender, soft - LYMPHATIC Lymphatic: no adenopathy - MUSCULOSKELETAL Back Exam: normal inspection Extremity: normal range of motion, non-tender - SKIN Integumentary: normal color, warm/dry - NEUROLOGIC Neurologic: grossly normal - PSYCHIATRIC Psych/Mental Status: normal mood/affect, oriented x 3 Progress - PLAN OF CARE/RESULTS Progress/Plan/Lab Results: Vital Signs - 8 hr 06/07/18 16:49 06/07/18 17:00 06/07/18 17:30 Pulse Rate 91 H 90 100 H Respiratory Rate 20 16 18 Blood Pressure 143/79 O2 Sat by Pulse Oximetry 83 L 87 L 06/07/18 17:40 Pulse Rate Respiratory Rate Blood Pressure O2 Sat by Pulse Oximetry 95 Laboratory Results - last 24 hr 06/07/18 06/07/18 06/07/18 17:10 17:10 17:10 WBC 6.49 RBC 4.58 L Hgb 11.1 L Hct 36.5 L MCV 79.7 L MCH 24.2 L MCHC 30.4 L RDW Std Deviation 14.7 H Plt Count 279 MPV 8.5 Immature Gran % (Auto) 0.2 Neut % (Auto) 67.0 Lymph % (Auto) 15.1 L [place] % (Auto) 12.6 H Eos % (Auto) 4.8 Baso % (Auto) 0.3 Immature Gran # (Auto) 0.01 Neut # (Auto) 4.35 Lymph # (Auto) 0.98 L [place] # (Auto) 0.82 H Eos # (Auto) 0.31 Baso # (Auto) 0.02 Specimen Type Sample Site pH pCO2 pO2 HCO3 Base Excess Oxyhemoglobin ABG O2 Sat (Calculated) ABG O2 Saturation ABG Carboxyhemoglobin ABG Methemoglobin Mart[place]nez Test A-a O2 Difference Total Hemoglobin Lactate Liter Flow Blood Gas Modality FiO2 % Sodium 137 Potassium 3.4 L Chloride 89 L Carbon Dioxide 41 H Anion Gap 7 BUN 13 Creatinine 1.2 Estimated GFR/1.73 m2 60 BUN/Creatinine Ratio 11 Glucose 137 H Calculated Osmolality 276 Calcium 8.5 L Total Bilirubin 0.20 AST 15 ALT 11 Alkaline Phosphatase 139 H Troponin T 0.013 Nxv-Z-Ycdtljhohff Pept Total Protein 6.8 Albumin 3.6 Globulin 3.0 Albumin/Globulin Ratio 1.0 06/07/18 06/07/18 17:10 17:17 WBC RBC Hgb Hct MCV MCH MCHC RDW Std Deviation Plt Count MPV Immature Gran % (Auto) Neut % (Auto) Lymph % (Auto) [place] % (Auto) Eos % (Auto) Baso % (Auto) Immature Gran # (Auto) Neut # (Auto) Lymph # (Auto) [place] # (Auto) Eos # (Auto) Baso # (Auto) Specimen Type ARTERIAL Sample Site R RADIAL pH 7.34 L pCO2 79 H* pO2 47 L* HCO3 34.5 H Base Excess 12.9 H Oxyhemoglobin 81.7 L* ABG O2 Sat (Calculated) 16.5 ABG O2 Saturation 85.0 L ABG Carboxyhemoglobin 2.70 H ABG Methemoglobin 1.2 Mart[place]nez Test YES A-a O2 Difference 111.0 Total Hemoglobin 14.4 Lactate 1.10 Liter Flow 4.0 Blood Gas Modality [place] FiO2 % 36.0 Sodium Potassium Chloride Carbon Dioxide Anion Gap BUN Creatinine Estimated GFR/1.73 m2 BUN/Creatinine Ratio Glucose Calculated Osmolality Calcium Total Bilirubin AST ALT Alkaline Phosphatase Troponin T Dyn-H-Eknoksgbwhl Pept 567 H Total Protein Albumin Globulin Albumin/Globulin Ratio Orders Category Date Time Status Admit - [facility] Routine AdmDCTranf 06/07/18 18:31 Active CHEST-PORTABLE [RAD] Stat Exams 06/07/18 17:52 Taken ABG [RESP] Routine Lab 06/07/18 17:17 Completed CBC WITH ELECTRONIC DIFF [HEME] Stat Lab 06/07/18 17:10 Completed COMPREHENSIVE METABOLIC PANEL [CHEM] Stat Lab 06/07/18 17:10 Completed PRO B-NATRIURETIC PEPTIDE Stat Lab 06/07/18 17:10 Completed TROPONIN T Stat Lab 06/07/18 17:[address] W/POSS RFLX CULT [URINALYSIS] Stat Lab 06/07/18 17:25 Uncoll ected Albuterol 2.5MG/Ipratrop 0.5MG [Duoneb (A & A)] Med 06/07/18 19:30 Ordered 3 ml INH RTQ4H Albuterol 2.5MG/Ipratrop 0.5MG [Duoneb (A & A)] Med 06/07/18 17:05 Discontinued 9 ml INH NOW ONE Azithromycin 500 mg/Ns [Zithromax 500 mg/Ns] Med 06/07/18 18:30 Ordered 500 mg in 250 ml IV Q24H Budesonide [Pulmicort] Med 06/07/18 17:05 Discontinued 0.5 mg INH NOW ONE CefTRIAXONE [Rocephin] 1 gm Med 06/07/18 18:30 Ordered 0.9% Sodium Chloride Inj [Ns] 50 ml IV DAILY Methylprednisolone Sod Succ [Solu-Medrol] Med 06/07/18 17:05 Discontinued 125 mg IV NOW ONE Methylprednisolone Sod Succ [Solu-Medrol] Med 06/07/18 18:45 Ordered 125 mg IV Q8H Aerosol Treatments Routine Oth 06/07/18 17:05 Completed Aerosol Treatments Routine Oth 06/07/18 18:32 Ordered Aerosol Treatments Stat Oth 06/07/18 17:05 Completed Aerosol Treatments Stat Oth 06/07/18 18:32 Ordered Transfer/Admit Order [TRANSFER] Routine Transfer 06/07/18 18:32 Ordered Result Diagrams: 06/07/18 17:10 06/07/18 17:10 - EKG 1 Time of EKG reading by physician:: 17:02 EKG Read and Signed by:: Emily Johnson EKG Interpretation (*Must complete 3 of following elements*): Abnormal Rate: 101 Rhythm: NSR ST Wave: non-specific ST changes - XRAY 1 XRAY Study: Chest Impression: Abnormal Comparison with other Films: no changes - CONSULTS/PCP/HOSPITALIST Notification #1 *Consult/PCP/Hospitalist*: Dr Quiñones Time Discussed: 18:33 Reason/Comments: Admit, ICU, wanted cover orders placed Consult Disposition: Admit Departure - Departure Date of Disposition Decision: 06/07/18 Time of Disposition Decision: 18:33 DIAGNOSIS: CHF (congestive heart failure), COPD with exacerbation, Hypoxia, CO2 retention Disposition: ADMITTED INPATIENT 09 Certified Medical Emergency: Emergent Condition: Fair Referrals and Follow-Ups: None,PCP [Primary Care Provider] - - Critical Care Note This patient required my direct & personal management of CC.: Yes Total Time (mins): 75 Critical Care Statement: This patient required my direct personal management to treat or rule out processes, the absence of which, could potentiallly result in sudden, clinically significant life or limb threatening deterioration. Attestation - Physician/ DEVON Attestation Patient care was provided by Advanced Practice Provider:: No The physician spent face to face time with patient:: Yes Advanced Practice Provider documentation review:: Supervising physician onsite and consulted in the evaluation and care of this patient. The physician did have a face to face encounter with the patient.
[2018-06-07 17:30] LABS: BASO# 0.02 X1000 (0.0-0.2); BASO% 0.3 % (0.0-0.8); EOS# 0.31 X1000 (0.0-0.7); EOS% 4.8 % (0.0-10.0); HEMATOCRIT 36.5 % (42.0-52.0); HEMOGLOBIN 11.1 g/dL (14.0-18.0); IMM GRAN# 0.01 X1000 (0.0-0.04); IMM GRAN% 0.2 % (0.0-0.5); LYMPH# 0.98 X1000 (1.2-3.4); LYMPH% 15.1 % (20.5-51.1); MCH 24.2 PG (27-31); MCHC 30.4 g/dL (33-37); MCV 79.7 FL (81-99); MONO# 0.82 X1000 (0.11-0.59); MONO% 12.6 % (1.7-9.3); MPV 8.5 FL (7.4-10.4); NEUT# 4.35 X1000 (1.4-6.5); PLT 279 X1000 (130-400); RBC 4.58 XMIL (4.7-6.1); RDW 14.7 % (11.5-14.5); WBC 6.49 X1000 (4.8-10.8)
[2018-06-07 17:31] LABS: BE 12.9 mmoll (-3.0-3.0); BLOOD TYPE ARTERIAL; HCO3-(ACT) 34.5 mmoll (20.0-26.0); METHB 1.2 % (0.0-1.5); O2(CT) 16.5 mL/dL (15.0-23.0); SAMPLE BLOOD; THB 14.4 g/dL (11.5-17.4); pH(98.6) 7.34 (7.35-7.45)
[2018-06-07 17:34] LABS: ALLEN TEST YES; MODALITY CANNULA
[2018-06-07 17:35] LABS: PCO2(98.6) 79 mmHg (35-45); PO2(98.6) 47 mmHg (60-100)
[2018-06-07 17:36] LABS: O2HB 81.7 % (95.0-99.0)
[2018-06-07 17:55] LABS: ALBUMIN 3.6 g/dL (3.5-5.0); CALCIUM 8.5 mg/dL (8.8-10.2); CREATININE 1.2 mg/dL (0.7-1.2); POTASSIUM 3.4 mmol/L (3.5-5.1); TOTAL BILIRUBIN 0.2 mg/dL (0.20-1.00); TOTAL PROTEIN 6.8 g/dL (6.3-8.3)
[2018-06-07] MEDS: ROCEPHIN 1 GM in NS 50 ML IV SCH (19:20)
--- NOTE | 2018-06-07 19:23 | Diag Imaging Result Doc PS360 ---
CHEST-PORTABLE - 06/07/2018 INDICATION: COPD, CHF, revoked hospice COMPARISON: 03/14/2018 FINDINGS: Lung volumes are lower. There are COPD changes. There are some increased markings in the lung bases, nonspecific. These have significantly improved since the prior chest x-ray. No dense consolidation. Heart size is normal. No pneumothorax or pleural effusion. IMPRESSION: COPD. Nonspecific increased markings in the lung bases consistent with fibrosis, bronchitis or mild pulmonary edema. Improved from the prior chest x-ray. Electronically signed by Héctor Guerin 06/07/2018 7:21 PM
[2018-06-07] MEDS: DUONEB (A & A) INH SCH ×2 (19:30→23:30)
[2018-06-07] MEDS ORDERED: TYLENOL PO PRN (19:46)
[2018-06-07] MEDS ORDERED: ZOFRAN IV PRN (19:46)
[2018-06-07] MEDS ORDERED: DUONEB (A & A) INH PRN (19:46)
[2018-06-07] MEDS: ZITHROMAX 500 MG/NS 500 MG/250 ML IVPB IV SCH (20:46)
[2018-06-07] MEDS: NS 1,000 ML IV SCH (20:47)
[2018-06-07 21:02] LABS: BILIRUBIN URINE NEGATIVE (NEGATIVE); BLOOD URINE NEGATIVE (NEGATIVE); CLARITY CLEAR (CLEAR); COLOR YELLOW; GLUCOSE URINE NEGATIVE (NEGATIVE); KETONE URINE NEGATIVE (NEGATIVE); LEUKOCYTES URINE NEGATIVE (NEGATIVE); NITRITE URINE NEGATIVE (NEGATIVE); PROTEIN URINE NEGATIVE (NEGATIVE); UROBILINOGEN URINE NORMAL
[2018-06-07 21:08] LABS: URINE SOURCE CATH
[2018-06-07 21:09] LABS: URINE BACTERIA NEGATIVE /HFP; URINE CAST NONE SEEN /LPF; URINE CRYSTAL NONE SEEN /HPF; URINE EPITHELIAL CELLS <10 /HPF (<10); URINE RBC <10 /HPF (<10); URINE WBC <10 /HPF (<10); URINE YEAST NONE SEEN /HPF
[2018-06-08] MEDS ORDERED: SOLU-MEDROL IV SCH ×2 (02:00)
[2018-06-08] MEDS: DUONEB (A & A) INH SCH ×6 (04:30→22:39)
[2018-06-08 05:14] LABS: HEMATOCRIT 36.4 % (42.0-52.0); HEMOGLOBIN 10.9 g/dL (14.0-18.0); MCH 23.5 PG (27-31); MCHC 29.9 g/dL (33-37); MCV 78.6 FL (81-99); RBC 4.63 XMIL (4.7-6.1); RDW 14.5 % (11.5-14.5); WBC 4.11 X1000 (4.8-10.8)
[2018-06-08 06:15] LABS: BE 13.6 mmoll (-3.0-3.0); BLOOD TYPE ARTERIAL; HCO3-(ACT) 35.4 mmoll (20.0-26.0); O2(CT) 14.5 mL/dL (15.0-23.0); O2HB 91.3 % (95.0-99.0); PO2(98.6) 54 mmHg (60-100); SAMPLE BLOOD; SAO2 94.4 % (95.0-100.0); SRATE 20 BPM; THB 11.3 g/dL (11.5-17.4); pH(98.6) 7.47 (7.35-7.45)
[2018-06-08 06:18] LABS: AGAP 9; ALBUMIN 3.4 g/dL (3.5-5.0); ALKALINE PHOSPHATASE 132 U/L (32-122); BUN 12 mg/dL (8-22); CALCIUM 8.6 mg/dL (8.8-10.2); CHLORIDE 94 mmol/L (98-107); COSMO 280; CREATININE 0.9 mg/dL (0.7-1.2); ESTIMATED GFR > 60; GLUCOSE 149 mg/dL (70-104); GOT 12 U/L (10-34); GPT 10 U/L (10-44); MAGNESIUM 1.8 mg/dL (1.5-2.7); SODIUM 139 mmol/L (136-145); TCO2 36 mmol/L (25-35); TOTAL PROTEIN 6.6 g/dL (6.3-8.3)
[2018-06-08 06:19] LABS: MODALITY BI PAP; PCO2(98.6) 54 mmHg (35-45)
[2018-06-08 06:20] LABS: ALLEN TEST YES
[2018-06-08] MEDS ORDERED: PHENERGAN PO PRN (08:16)
[2018-06-08] MEDS ORDERED: NEURONTIN PO SCH (09:00)
[2018-06-08] MEDS: ZYPREXA PO SCH (09:06)
[2018-06-08] MEDS: LASIX PO SCH ×2 (09:06→20:41)
[2018-06-08] MEDS: XANAX PO SCH ×2 (09:07→20:41)
[2018-06-08] MEDS: ZOLOFT PO SCH (09:07)
[2018-06-08] MEDS: FLOMAX PO SCH (09:08)
[2018-06-08] MEDS: HYDROCHLOROTHIAZIDE PO SCH (09:08)
[2018-06-08] MEDS: ARICEPT PO SCH (09:08)
[2018-06-08] MEDS: CARDIZEM CD PO SCH (09:08)
[2018-06-08] MEDS: PROTONIX PO SCH (09:23)
[2018-06-08] MEDS: SOLU-MEDROL IV SCH ×2 (09:23→18:01)
[2018-06-08] MEDS: PERCOCET-10 PO PRN ×2 (09:42→20:41)
[2018-06-08] MEDS: LIORESAL PO PRN ×2 (09:42→20:41)
[2018-06-08] MEDS: NS 1,000 ML IV SCH (09:45)
--- NOTE | 2018-06-08 11:28 | EKG Report ---
Test Performed on : 06/07/2018 5:01:28 PM Test Reason : ER Blood Pressure : / mmHG Vent. Rate : 101 BPM Atrial Rate : 101 BPM P-R Int : 194 ms QRS Dur : 094 ms QT Int : 372 ms P-R-T Axes : 070 028 068 degrees QTc Int : 482 ms Sinus tachycardia. Nonspecific ST abnormality Abnormal ECG When compared with ECG of 14-MAR-2018 21:32, No significant change was found Unconfirmed Result
[2018-06-08] MEDS: NEURONTIN PO SCH (18:01)
[2018-06-08] MEDS: ROCEPHIN 1 GM in NS 50 ML IV SCH (18:02)
--- NOTE | 2018-06-08 18:17 | PROGRESS NOTE ---
DATE: 06/08/2018 SUBJECTIVE: Patient overall is feeling a lot better. He is off BiPAP. He is awake, alert. He has no current complaints. PHYSICAL EXAMINATION: Vital Signs: Reviewed. Vital signs are stable. General: He is awake, alert. He is oriented this morning. HEENT: Normocephalic. Neck: Supple. Cardiovascular: Regular rate. Chest: Clear. Abdomen: Soft. Extremities: Moves all extremities. ASSESSMENT: 1. Hypercapnic respiratory failure. His CO2 is actually improved. Currently it is down to 58, which is essentially his baseline. He currently is off BiPAP. We will continue to follow. 2. Chronic obstructive pulmonary disease with exacerbation. 3. Chronic pain. 4. Chronic anxiety. PLAN: Again discussed with the patient and family that he cannot take high doses of pain medication. In fact, any opiate and benzodiazepine certainly can worsen his breathing and cause respiratory failure and . We will continue to follow. cc: Miguel Carlson MD
[2018-06-08] MEDS: ZITHROMAX 500 MG/NS 500 MG/250 ML IVPB IV SCH (19:20)
--- NOTE | 2018-06-08 20:05 | HISTORY AND PHYSICAL ---
CHIEF COMPLAINT: Acute worsening shortness of breath. HISTORY OF PRESENT ILLNESS: Patient is a 68-year-old male who is . However, he currently is living at home with 1 daughter and his is living at another daughter's home. The daughter notes that he has not been smoking and he has been staying away from his , who continues to smoke. He has been using his Trilogy at home, but had a sudden worsening of his symptoms yesterday and they dramatically worsened again today and therefore she brought him to the emergency department. She denies any fevers, denies chills, denies any production to his chronic cough. Does state that he has had some increased work of breathing, shortness of breath over the last 2 days. SOCIAL HISTORY: Patient is on disability. He is . Lives at home with his daughter. ALLERGIES: Codeine causing itching. MEDICATIONS: Zoloft 50, Lasix 40 b.i.d., spironolactone 25, hydrocodone q.6 p.r.n., DuoNeb, Xanax 0.5 t.i.d. p.r.n., diltiazem 120. REVIEW OF SYSTEMS: As noted above. The patient currently is at home on Trilogy with hospice. Hospice nurse came and checked on him today and his saturations were 89-90 percent on 3 L typically. Today, they were 81% on the same 3 L. Hospice had talked with him and the family about code status and DNR. He decided to be a full code and therefore they asked him to go to the ER where he was admitted as noted above. He did receive 2 breathing treatments at home and 1 in the ER prior to putting on BiPAP. Denies any fevers, chills, denies any production to his cough. States that he cannot breathe. In fact, currently Mr. Gonzales is disoriented and unable to follow commands or answer questions appropriately. All the history is per his daughter. She denies any recent GI or issues. Denies any knowledge of skin rashes. PAST MEDICAL HISTORY: Coronary artery disease, congestive heart failure, hypertension, [place], COPD, sleep apnea, chronic reflux, chronic anxiety, depression, chronic neck and back pain, history of exposure to [place]. He has had an appendectomy, hernia repair, and neck and back surgery. FAMILY HISTORY: Positive for COPD in his and several family members who smoke. PHYSICAL EXAMINATION: VITAL SIGNS: Reviewed. Temperature, he is afebrile, pulse 90s, respiratory rate 20, BP 143/79. Saturation currently 83-87 percent on 3 L. GENERAL: Patient is somnolent, although does arouse to stimuli. He is confused, disoriented. He is in moderate respiratory distress. HEENT: Normocephalic. NECK: Supple. CV: Regular rate. CHEST: Decreased breath sounds bilaterally. ABDOMEN: Soft. EXTREMITIES: Moves all extremities. NEURO: He is not noted to have any focal changes in his extremities, although unable to assess due to his somnolence. LABS: Potassium 3.4, glucose 137, pH 7.3, pCO2 of 79, pO2 of 47, base excess of 12.9, carboxyhemoglobin at 2.7 on 36% FiO2. ASSESSMENT: 1. Acute hypercapnic respiratory failure. 2. Hyperglycemia. 3. Hypertension. 4. Congestive heart failure, systolic, does not appear to be currently in exacerbation. 5. Hypoxic respiratory failure. 6. Chronic pain. 7. Chronic anxiety. PLAN: We will continue patient on BiPAP. We will continue oxygen breathing treatments. We will add steroids, antibiotics and will follow. Discussed with the family for approximately 40 minutes, the severity of his illness. Discussed with him the perils of him continuing to take anxiety and pain medication and the fact that they certainly will increase his respiratory suppression. We will continue to follow. Further orders as needed. cc: Miguel Carlson MD
[2018-06-08] MEDS: REMERON PO SCH (20:41)
[2018-06-09] MEDS: NEURONTIN PO SCH ×3 (01:08→17:26)
[2018-06-09] MEDS: SOLU-MEDROL IV SCH ×3 (01:11→17:26)
[2018-06-09] MEDS: NS 1,000 ML IV SCH ×2 (01:11→12:10)
[2018-06-09] MEDS: DUONEB (A & A) INH SCH ×5 (03:07→22:45)
[2018-06-09] MEDS: PROTONIX PO SCH (06:05)
[2018-06-09] MEDS: ZYPREXA PO SCH (08:51)
[2018-06-09] MEDS: FLOMAX PO SCH (08:51)
[2018-06-09] MEDS: LASIX PO SCH ×2 (08:52→20:01)
[2018-06-09] MEDS: HYDROCHLOROTHIAZIDE PO SCH (08:52)
[2018-06-09] MEDS: ARICEPT PO SCH (08:52)
[2018-06-09] MEDS: CARDIZEM CD PO SCH (08:52)
[2018-06-09] MEDS: PERCOCET-10 PO PRN ×2 (08:52→20:01)
[2018-06-09] MEDS: ZOLOFT PO SCH (08:52)
[2018-06-09] MEDS: XANAX PO SCH ×2 (08:52→20:01)
--- NOTE | 2018-06-09 12:10 | PROGRESS NOTE ---
DATE: 06/09/2018 SUBJECTIVE: The patient notes he is feeling a lot better this morning. He is having minimal cough, no real shortness of breath, no chest pain, but he has also not been out of bed. Denies any fevers or chills. Staff notes that he has been much more awake, alert and oriented. PHYSICAL EXAMINATION: Vital Signs: Reviewed. He is afebrile. Temperature 98.4 degrees. Pulse 78, respiratory 22, blood pressure 145/83. General: Patient is awake, currently in no respiratory distress although he is lying flatly in the bed. He is still on 3 L of oxygen. Trilogy is currently off. HEENT: Normocephalic. Neck: Supple. Cardiovascular: Regular rate. Chest: Clear. No wheezing currently. Does have decreased breath sounds bilaterally. Positive rhonchi throughout. No appreciable crackles. Abdomen: Soft, nondistended. Extremities: Moves all extremities. Neurologic: No focal changes. He is awake, alert, oriented. Skin: Warm, dry. No rashes. ASSESSMENT: 1. Acute hypercapnic on chronic failure. 2. Acute hypoxic on chronic failure. 3. Chronic obstructive pulmonary disease with acute exacerbation. 4. Hyperglycemia. 5. Congestive heart failure, systolic, stable. 6. Chronic pain. 7. Chronic anxiety. PLAN: We will continue patient in the hospital. Continue treatment. Continue oxygen. Transfer to the floor. Hopefully he can discharge home tomorrow if symptoms continue to improve. cc: Miguel Carlson MD
[2018-06-09] MEDS: LIORESAL PO PRN (17:26)
[2018-06-09] MEDS: ROCEPHIN 1 GM in NS 50 ML IV SCH (17:35)
[2018-06-09] MEDS: ZITHROMAX 500 MG/NS 500 MG/250 ML IVPB IV SCH (18:41)
[2018-06-09] MEDS: REMERON PO SCH (20:01)
[2018-06-10] MEDS: DUONEB (A & A) INH SCH ×3 (01:53→07:33)
[2018-06-10] MEDS: SOLU-MEDROL IV SCH (02:05)
[2018-06-10] MEDS: NEURONTIN PO SCH (02:06)
[2018-06-10] MEDS: NS 1,000 ML IV SCH (03:28)
[2018-06-10] MEDS: PROTONIX PO SCH (06:26)
[2018-06-10 07:28] VITALS: BP 154/84
[2018-06-10] MEDS ORDERED: PLAVIX PO SCH (09:00)
--- NOTE | 2018-06-10 14:50 | DISCHARGE SUMMARY ---
ADMISSION DATE: 06/07/2018 DISCHARGE DATE: 06/10/2018 DISCHARGE DIAGNOSES: 1. Chronic obstructive pulmonary disease with acute exacerbation. 2. Acute on chronic hypercapnic respiratory failure, back to his baseline including last pCO2 at 59. 3. Acute hypoxic respiratory failure on chronic. 4. Chronic anxiety. 5. Chronic depression. 6. Chronic pain. 7. History of atrial fibrillation currently stable. 8. Congestive heart failure stable. CONSULTATIONS: [facility]. PROCEDURES: None. BRIEF HOSPITAL COURSE: The patient is a 68-year-old male who presented to the hospital in acute respiratory failure, was placed on BiPAP. Thankfully he had a very quick improvement. I expect this is secondary to his chronic use of Trilogy at home. His ABG improved over the next day. He was weaned off BiPAP and was allowed to use Trilogy at home back to his normal as needed and every night status. Again as noted on HPI, discussed with the family and Mr. Gonzales the perils of opiates and benzos given his severity of his respiratory status. Discussed with him that he certainly needs to take these only on absolutely as needed basis and not to schedule them. We will continue to follow. DISPOSITION: Patient will be discharged home. 30 minutes was spent in total care. The patient will be discharged with [facility]. He will continue Trilogy as well as his other medications. He will change his pain medications benzos to as needed. He will be discharged home on antibiotics for the next 5 days as it is possible that pneumonia is what triggered this and we will follow. cc: Miguel Carlson MD
== END 2018-06-10 09:51 | disposition hospice, home (50) | DRG 189 ==
LOC: P.ED 16:45 → P.ICU 20:02 → P.MEDSURG 06-09 18:12
PROVIDERS: ADMIT Family Medicine; ATTEND Family Medicine
CPT/HCPCS: 36415; 51702; 71010; 71045; 80053; 81001; 82805; 83735; 83880; 84484; 85025; 85027; 93005; 94640; 94660; 94761; 94799; 96365; 96375; 99285; 99291; A9270; J0456; J0696; J2930; J7030